=== PATIENT | female | born 2000 | race Asian ===

== ENCOUNTER 2020-02-29 12:30 | Emergency (ER) | payer OTHER ==
[~2020-02-29] VITALS: Ht 165.1 cm; Wt 51.7 kg
--- NOTE | 2020-02-29 12:47 | NUR ---
AT BEDSIDE FOR EVAL.
[2020-02-29] MEDS ORDERED: ONDANSETRON HCL/PF 4 MG/2 ML VIAL ONE (13:03)
[2020-02-29] MEDS: ONDANSETRON HCL/PF 4 MG/2 ML VIAL IVP ONE (13:10)
[2020-02-29] MEDS: IV NS 0.9% 1,000 ML BAG IV ONE (13:10)
--- NOTE | 2020-02-29 13:11 | NUR ---
ON & OFF FEVER X 6 DAYS,TEMPORARY RELIEF WITH TYLENOL. PT AAOX4, VSS, RR EVEN & UNLABORED. DENIES CP, SOB, DIZZINESS, N/V AT THIS TIME. MEDICATED PER ERMD ORDER, PT PB WELL. WILL CONT TO MONITOR.
[2020-02-29 13:14] LABS: BASOPHILS % (AUTO) 0.2 % (0.0-2.0); HEMATOCRIT 40 % (33-45); HEMOGLOBIN 13.7 g/dL (11.5-14.8); LYMPHOCYTES # (AUTO) 0.8 /CMM (0.8-4.8); LYMPHOCYTES % (AUTO) 6.1 % (20.0-44.0); MEAN CORPUSCULAR HGB CONC 34 g/dl (31.0-36.0); MEAN CORPUSCULAR VOLUME 94 fL (82-100); MONOCYTES # (AUTO) 1.8 /CMM (0.1-1.30); MONOCYTES % (AUTO) 14.7 % (2.0-12.0); NEUTROPHILS # (AUTO) 9.7 /CMM (1.8-8.9); PLATELET COUNT (AUTO) 145 /CMM (150-450); RED BLOOD CELL COUNT(AUTO) 4.27 MIL/uL (4.0-5.2); WHITE BLOOD COUNT (AUTO) 12.3 K/uL (4.3-11.0)
[2020-02-29 13:19] LABS: APPEARANCE,URINE Clear (CLEAR); BILIRUBIN,URINE Negative (NEGATIVE); BLOOD, URINE Moderate Ery/uL (NEGATIVE); COLOR,URINE Yellow (YELLOW); KETONES,URINE 40 (NEGATIVE); LEUKOCYTE ESTERASE ,URINE Small (NEGATIVE); NITRITE, URINE Positive (NEGATIVE); PH,URINE 6.5 (5.0-8.0); PROTEIN,URINE 100 mg/dl (NEGATIVE); UGLUCOSE Negative (NEGATIVE)
[2020-02-29 13:26] LABS: CALCIUM, SERUM 8.8 mg/dL (8.5-10.1)
[2020-02-29 13:36] LABS: ALBUMIN 3.4 g/dL (3.4-5.0); BILIRUBIN,DIRECT 0.2 mg/dL (0.0-0.2); BILIRUBIN,TOTAL 0.5 mg/dL (0.2-1.0); TOTAL PROTEIN, SERUM 8.2 g/dL (6.4-8.2)
[2020-02-29 13:51] LABS: BACTERIA,URINE Many /HPF (None Seen); SQUAMOUS EPITHELIAL CELL,UR Few /HPF (None Seen); WBC,URINE TOO NUMEROUS TO COUN /HPF (0-3)
[2020-02-29] MEDS ORDERED: POTASSIUM CL. PREMIX PERIPHER. 50 ML ONE ×2 (14:05→14:11)
--- NOTE | 2020-02-29 14:30 | NUR ---
ADDENDUM: Intravenous End Time Documentation: KCL 10 MEQ per 50 ML Nacl start time : 1430 end time: 1630 - IV site: RAC # 1 KCL 10 MEQ per 50 ML Nacl start time : 1630 end time: 1730 - IV site: RAC # 1
--- NOTE | 2020-02-29 14:32 | NUR ---
PT TO CT VIA [facility].
[2020-02-29] MEDS: POTASSIUM CHLORIDE 10 MEQ/50 ML PREMIXED IVPB FOR PERIPHERAL LINE IV ONE ×2 (15:15→16:25)
[2020-02-29] MEDS ORDERED: CEFTRIAXONE 1GM BAG (ER ONLY) 50 ML IV ONE (16:27)
[2020-02-29] MEDS: CEFTRIAXONE 1 G in IV D5W 50 ML IV ONE (16:34)
[2020-02-29] MEDS ORDERED: ACETAMINOPHEN ES 500 MG TABLET ONE (16:36)
[2020-02-29] MEDS ORDERED: IBUPROFEN 600 MG TABLET PO ONE (16:36)
[2020-02-29] MEDS: ACETAMINOPHEN ES 500 MG TABLET PO ONE (16:40)
[2020-02-29] MEDS: IBUPROFEN 600 MG TABLET PO ONE (16:40)
[2020-02-29 17:55] VITALS: BP 112/70
--- NOTE | 2020-02-29 17:56 | NUR ---
Patient discharged to home in stable condition. Written and verbal after care instructions given. Patient verbalizes understanding of instruction. IV removed. Catheter intact and site benign. Pressure and 4x4 applied to site. No bleeding noted.
== END 2020-02-29 17:56 | disposition home or self-care (01) ==
LOC: ER 12:30
DX: N10 Acute pyelonephritis (principal); E87.6 Hypokalemia; R10.32 Left lower quadrant pain; R19.7 Diarrhea, unspecified
CPT/HCPCS: 36415; 74176; 80048; 80076; 81001; 83690; 84702; 84703; 85025; 87077; 87086; 87186; 96361; 96365; 96366; 96368; 96375; 99285; J0696 ×2; J2405; J3480 ×2; J7030; J7060; 81000-TC